=== PATIENT | male | born 1995 | race African-American/Black ===

== ENCOUNTER 2016-03-10 14:00 | Emergency (ER) | payer OTHER ==
[~2016-03-10] VITALS: Ht 190.5 cm; Wt 88.5 kg
--- NOTE | 2016-03-10 14:28 | ED Lower Extremity ---
General Chief Complaint: Lower Extremity Stated Complaint: LEFT FOOT INJURY Nursing Triage Note: PT CO OF L FOOT PAIN, PT STATES DOING FLIP AND INJURED L FOOT Nursing Sepsis Screen: No Definite Risk History of Present Illness Time seen by provider: 14:26 Initial Comments Patient injured his left foot when he attempted to do a flip. No other injury. He is unable to bear weight. This occurred just prior to arrival. Allergies and Home Medications Home Medications No Active Prescriptions or Reported Meds Constitutional: no symptoms reported Musculoskeletal: joint pain Past Zwvhhra-Jakzxf-Vfszzj Hx Patient Social History Alcohol Use: Denies Use Recreational Drug Use: No Smoking Status: Never a Smoker Recent Foreign Travel: No Contact w/Someone Who Travel: No Recent Infectious Disease Expo: No Recent Hopitalizations: No (NO HX) Physical Abuse Screen: No Sexual Abuse: No Immunizations Up To Date Tetanus Booster (TDap): Less than 5yrs Date of Influenza Vaccine: Nov 29, 2015 Reviewed Nursing Assessment Reviewed/Agree w Nursing PMH: Yes Physical Exam Vital Signs Vital Sign - Last 12Hours 03/10/16 14:10 Temp 97.2 Pulse 68 Resp 18 B/P 140/93 Pulse Ox 99 Capillary Refill : Less Than 3 Seconds General Appearance: WD/WN no apparent distress Neck: supple Cardiovascular: regular rate, rhythm Respiratory: decreased breath sounds wheezing expiration Gastrointestinal: soft Feet: left foot other (tender swollen over the dorsal aspect of distal metatarsals left foot) Neurologic/Psychiatric: alert normal mood/affect Skin: normal color warm/dry Progress/Results/Core Measures Results/Orders My Orders Orders-DORCAS HARPER MD Foot, Left, 3 Views (03/10/16 14:03) Talha Bandage (03/10/16 15:00) Crutches (03/10/16 15:00) Post-Op Shoe (03/10/16 15:00) Vital Signs/I&O Vital Sign - Last 12Hours 03/10/16 14:10 Temp 97.2 Pulse 68 Resp 18 B/P 140/93 Pulse Ox 99 Blood Pressure Mean: 109 Diagnostic Imaging Comments X-rays showed nothing acute Departure Impression Impression: Primary Impression: Sprain and strain of foot Disposition: 01 HOME, SELF-CARE Condition: Stable Departure-Patient Inst. Decision time for Depature: 14:47 Referrals: NO,LOCAL PHYSICIAN (PCP/Family) Primary Care Physician Patient Instructions: Sprain (DC) Add. Discharge Instructions: No weight bearing for the next 5-7 days. Keep elevated as much as possible. If still symptomatic in a week follow up with orthopedist. Dr. Brock is cardiopulmonary technician and eeg tech [phone]. All discharge instructions reviewed with patient and/or family. Voiced understanding. Scripts No Active Prescriptions or Reported Meds DORCAS HARPER MD Mar 10, 2016 14:28
--- NOTE | 2016-03-10 15:01 | Diagnostic Imaging Report ---
CLINICAL INDICATION: Patient was doing a flip and injured foot. Patient complains of pain in medial side of first metatarsal which radiates to bottom of foot. EXAM: X-ray of the left foot, three views. COMPARISON: None. FINDINGS: There is no evidence of acute fracture or dislocation. There is no significant bone or joint abnormality. Bony ossicle is seen laterally adjacent to the cuboid. IMPRESSION: Unremarkable x-ray of the left foot. Dictated by: Dictated on workstation # [id number]
[2016-03-10 15:19] VITALS: BP 140/93
== END 2016-03-10 15:19 | disposition home or self-care (01) ==
LOC: ER 14:03
DX: S93.602A Unspecified sprain of left foot, initial encounter (principal); S96.212A Strain of intrinsic muscle and tendon at ankle and foot level, left foot, initial encounter; X50.9XXA Other and unspecified overexertion or strenuous movements or postures, initial encounter; Y93.43 Activity, gymnastics; Y99.8 Other external cause status
CPT/HCPCS: 73630; 99283